=== PATIENT | female | born 1975 | race Two or more races ===

== ENCOUNTER → 2025-02-06 | Outpatient (CLI) | payer BC, SELFPAY ==
--- NOTE | 2025-02-06 14:30 | XR_ITS ---
Examination: Screening digital mammography, bilateral Computer aided detection 3-D breast Tomosynthesis, bilateral Date and time of exam: February 06, 2025 1420 hours Compared to mammograms dating to July 08, 2018 Indication: Screening Technique: Nonmagnified MLO, CC views of the breasts to been obtained, reconstructed from 3-D Tomosynthesis images. R2 computer aided detection program utilized for evaluation of suspicious masses and/or abnormal calcifications. 3-D Tomosynthesis images obtained. Findings: The breasts are heterogeneously dense, which may obscure small masses 4 mm nodule partially circumscribed upper outer right breast posterior depth Impression: BI-RADS Category 0: Incomplete: Need additional imaging evaluation Recommend follow-up spot tomographic views of the 4 mm nodule upper outer right breast posterior depth as well as bilateral breast sonography to complete the workup
== END | disposition home or self-care (01) ==
LOC: CDIM 13:50
PROVIDERS: Referring Provider Specialist; Visit Provider Specialist
DX: Z12.31 Encounter for screening mammogram for malignant neoplasm of breast (principal); N63.11 Unspecified lump in the right breast, upper outer quadrant
CPT/HCPCS: 77063; 77067

== ENCOUNTER 2025-02-09 13:20 | Day surgery (SDC) | payer BC, SELFPAY ==
[2025-02-08 13:42] VITALS: BMI 22.4
[2025-02-09] VITALS (9 sets, daily range): BP systolic 121–148; BP diastolic 79–97; PULSE 79–99; RESP 12–18; TEMP 36.5–36.6; O2SAT 96–100
[2025-02-09] MEDS: SODIUM CHLORIDE 0.9% 500 ML 500 ML 20 ML IV (15:34)
[2025-02-09] MEDS: MIDAZOLAM INJ 1 MG/ML VIAL 2 ML (ASD USE ONLY) 2 MG IVP (15:39)
[2025-02-09] MEDS: fentaNYL CIT INJ 50 mCg/ML AMP 2ML (ASD USE ONLY) IVP (15:39)
== END 2025-02-09 16:35 | disposition home or self-care (01) ==
PROVIDERS: PCP Specialist; Referring Provider Specialist; Visit Provider Specialist
PROC: 0DBE8ZX Excision of Large Intestine, Via Natural or Artificial Opening Endoscopic, Diagnostic (ICD-10-PCS; CPT 45380; principal; 2025-02-09 14:00)
DX: Z12.11 Encounter for screening for malignant neoplasm of colon (principal); K64.9 Unspecified hemorrhoids
CPT/HCPCS: 45378; 81025; J1200; J2250; J3010; J7999

== ENCOUNTER → 2025-04-25 | Outpatient (CLI) | payer BC, SELFPAY ==
--- NOTE | 2025-04-25 13:30 | XR_ITS ---
Examination: Breast ultrasound complete, bilateral Date and time of exam: April 25, 2025, 1325 hours INDICATIONS: 4 mm circumscribed nodule upper outer right breast on mammogram February 06, 2025. Technique: Real-time grayscale ultrasonographic imaging bilateral breasts, including all 4 quadrants as well as nipple retroareolar and axillary regions. Findings: Sonographic images right breast 8:00 cyst 7 x 5 mm 9:00 cyst 9 x 3 mm No solid nodules Sonographic images left breast 2:00 cyst 3 x 3 mm 3:00 cyst 6 x 5 mm Impression: BI-RADS Category 2: Benign findings, including small benign cyst right breast corresponding to the mammographic abnormality Return to routine mammographic surveillance
--- NOTE | 2025-04-25 14:35 | XR_ITS ---
Examination: Diagnostic digital mammography, unilateral, right Computer aided detection 3-D breast Tomosynthesis, unilateral Date and time of exam: April 25 2025, 1349 hours INDICATIONS: Mammogram February 06, 2025 4 mm nodule upper outer right breast posterior depth Technique: Nonmagnified MLO, CC views of the right breast have been obtained, reconstructed from 3-D Tomosynthesis images. R2 computer aided detection program utilized for evaluation of suspicious masses and/or abnormal calcifications. 3-D Tomosynthesis images obtained. Findings: The breast is heterogeneously dense, which may obscure small masses 5 mm circumscribed nodule is confirmed upper right breast, likely corresponding to cyst described on right breast mammogram today Impression: BI-RADS category 2: Benign findings Return to yearly follow-up mammography
== END | disposition home or self-care (01) ==
PROVIDERS: PCP Family Medicine; Referring Provider Specialist; Visit Provider Specialist
DX: R92.321 Mammographic fibroglandular density, right breast (principal); R92.8 Other abnormal and inconclusive findings on diagnostic imaging of breast
CPT/HCPCS: 76641; 77061; 77065; G0279